=== PATIENT | male | born 1970 | race Caucasian/White ===

== ENCOUNTER → 2021-08-24 15:21 | Outpatient (CLI) | payer BC, SELFPAY ==
--- NOTE | ~2021-08-24 | XR_ITS ---
XR knee RT 2V DATE: 08/24/2021 15:57 INDICATION: Right knee pain TECHNIQUE: AP and lateral views COMPARISON: None FINDINGS: There is enthesopathy of the patella at the quadriceps and patellar tendon insertion sites. There is an ununited anterior tibial tuberosity. There is moderately prominent periarticular spurring at the patellofemoral joint. There is moderate l oss of joint space at the medial compartment. There is mild periarticular spurring at the lateral com partment. No fracture, dislocation, periosteal reaction or bone destruction or joint effusion is evident. No ch ondrocalcinosis or radiopaque interarticular loose body is identified. IMPRESSION: Tricompartment osteoarthritis Patellar enthesopathy Reviewed, dictated and finalized at location A. DRIVER
--- NOTE | ~2021-08-24 | XR_ITS ---
XR knee LT 2V DATE: 08/24/2021 15:57 INDICATION: Left knee pain TECHNIQUE: AP and lateral views COMPARISON: None FINDINGS: There are ununited ossification centers at the anterior tibial tuberosity. There is superior pole and minimal lower pole patellar enthesopathy at the quadriceps and patellar te ndon insertion sites, respectively. There is some calcification along the distal patellar tendon near the anterior tibial tuberosity insertion. There is prominent periarticular spurring at the patella and to a lesser extent lateral compartments. No fracture or dislocation or joint effusion. No periosteal reaction or bone destruction. No chondroc alcinosis or radiopaque intra-articular loose body is noted. IMPRESSION: Osteoarthritis, most pronounced at the patellofemoral joint Distal patellar tendon calcification Reviewed, dictated and finalized at location A. CHISE DEVELOPMENT MANAGER
== END ==
PROVIDERS: PCP Family Medicine; Visit Provider Family Medicine
DX: M25.561 Pain in right knee (principal); M25.562 Pain in left knee; M17.0 Bilateral primary osteoarthritis of knee; M76.51 Patellar tendinitis, right knee
CPT/HCPCS: 73560

== ENCOUNTER 2022-11-29 00:58 | Day surgery (SDC) | payer BC, SELFPAY ==
[2022-11-09 11:37] VITALS: BMI 35.4
[2022-11-29 08:48] VITALS: BP 143/81; PULSE 92; RESP 18; TEMP 36.5; O2SAT 98; BMI 33.7
--- NOTE | 2022-11-29 08:48 | P.PNAN_ITS ---
Anes - Initial Pre Proc Eval Procedure: Operation Date: 11/29/22 10:00 Proposed Procedures p Screening Colonoscopy - Karsten De La Cruz MD Date/Time: 11/29/22 08:48 Surgeon: Karsten De La Cruz MD Pre Op Diagnosis: ivy screening; screening for neoplasm of rectum Patient Data Age: 52 Gender: M Height: 1.91 m Weight: 128.8 kg Allergies Allergy/AdvReac Type Severity Reaction Status Date / Time No Known Allergies Allergy Mild Verified 11/29/22 08:47 Home Medications Medication Instructions Recorded Confirmed Type atorvastatin 10 mg tablet 10 mg PO DAILY #90 tabs 09/23/22 11/29/22 Rx lisinopril 30 mg tablet See Rx Instructions .Route 09/23/22 11/29/22 Rx .COMPLEX #90 tabs metformin 500 mg tablet,extended 2,000 mg PO DAILY #360 tabs 11/09/22 11/29/22 Rx release 24hr Patient hx anesthesia problems: none Family hx anesthesia problems: none Results Review: All pre-operative results and documents have been reviewed as part of the pre- operative evaluation. [facility] Past Medical History Medical History (Updated 11/29/22 @ 08:50 by Guillermo Wren MD) Anxiety Essential (primary) hypertension Mixed hyperlipidemia Obesity TO on CPAP Osteoarthritis of knees, bilateral Smoker Type 2 diabetes mellitus without complication, without long-term current use of insulin Social History Social History Smoking packs per day: 1 Smoking cigarettes per day: 20.0 Years smoked: 25 Smoking pack-years: 25.00 Smoking status: Current every day smoker Tobacco type: cigarettes Second hand tobacco smoke exposure: No Alcohol intake: current Drinks per week: 18 Substance use: former Substance use type: does not use Living arrangements: alone Occupation/Education: occupation Gender identity (if verbalized by the patient): Male Spiritual care concerns: No Anes - Eval Final PreProcedure Day of Procedure 11/29/22 08:48 Patient weight: obese Heart: regular rate and rhythm Lungs: clear to auscultation and normal air movement Airway: Mallampati scale class II Neurological: alert and oriented Last oral intake: >/= 8 hours ASA classification: III Emergent: no Anesthetic plan: proceed Anesthesia type and monitoring: general GIVS Results Review: All pre-operative results and documents have been reviewed as part of the pre- operative evaluation. Informed Consent: The patient's anesthetic plan and its attendant risks and benefits were discussed with the patient/family/POA. Questions were solicited and answers provided to the satisfaction of the patient/family/POA.
[2022-11-29] MEDS: LACTATED RINGERS 1,000 ML 150 ML IV CONT (08:59)
[2022-11-29 09:01] LABS: Glucose Point of Care 182 mg/dl (65-105)
--- NOTE | 2022-11-29 09:21 | P.HP_ITS ---
History of Present Illness History of Present Illness Consent: Risks, benefits, and alternatives have been discussed and questions answered. Patient agrees to proceed with procedure. Chief complaint: ivy screening Narrative: Sam Rodriguez is a 52 year old male Presents for screening colonoscopy. patient's current weight appetite and bowel movements are normal. Patient denies abdominal pain. He has had no bleeding. Family history is significant that his father has had colon polyps. Patient presents today for neoplasia screening. Review of Systems Review of Systems: Review of systems noncontributory. [facility] Past Medical History Medical History (Updated 11/29/22 @ 09:22 by Karsten De La Cruz MD) Anxiety Essential (primary) hypertension Mixed hyperlipidemia Obesity TO on CPAP Osteoarthritis of knees, bilateral Smoker Type 2 diabetes mellitus without complication, without long-term current use of insulin Social History Social History Smoking packs per day: 1 Smoking cigarettes per day: 20.0 Years smoked: 25 Smoking pack-years: 25.00 Smoking status: Current every day smoker Tobacco type: cigarettes Second hand tobacco smoke exposure: No Alcohol intake: current Drinks per week: 18 Substance use: former Substance use type: does not use Living arrangements: alone Occupation/Education: occupation Gender identity (if verbalized by the patient): Male Spiritual care concerns: No Meds Home Medications and Allergies Home Medications Medication Instructions Recorded Confirmed Type atorvastatin 10 mg tablet 10 mg PO DAILY #90 tabs 09/23/22 11/29/22 Rx lisinopril 30 mg tablet See Rx Instructions .Route 09/23/22 11/29/22 Rx .COMPLEX #90 tabs metformin 500 mg tablet,extended 2,000 mg PO DAILY #360 tabs 11/09/22 11/29/22 Rx release 24hr Allergies Allergy/AdvReac Type Severity Reaction Status Date / Time No Known Allergies Allergy Mild Verified 11/29/22 08:47 Vital Signs Vital Signs - 24 hr 11/29/22 08:48 Temperature 97.7 F Pulse Rate 92 Respiratory Rate 18 Blood Pressure 143/81 H Pulse Oximetry 98 Oxygen Delivery Room Air Exam Narrative: Physical exam reveals patient to be alert. Vital signs stable. HEENT exam is unremarkable. Patient is anicteric. Lungs are clear to auscultation and percussion. Heart is without murmur or extra sounds. Abdomen bowel sounds are present soft nontender with no hepatosplenomegaly. Digital external rectal exam is normal. Assessment and Plan Assessment and plan (1) Family history of colonic polyps: Code(s): Z83.71 - Family history of colonic polyps Status: Acute Assessment and Plan: Patient's father has had colon polyps. Patient presents today for neoplasia screening colonoscopy. Further recommendations may be given after endoscopy.
[2022-11-29] MEDS: SIMETHICONE ORAL SUSPENSION 20 MG/0.3 ML 30 ML BOTTLE 0.6 ML IRRIGATION (10:13)
[2022-11-29 10:23] VITALS: BP 113/68; PULSE 85; RESP 18; O2SAT 96
[2022-11-29 10:33] VITALS: BP 119/81; PULSE 80; RESP 17; O2SAT 97
[2022-11-29 10:43] VITALS: BP 119/81; PULSE 77; RESP 18; O2SAT 99
== END 2022-11-29 10:46 | disposition home or self-care (01) ==
PROVIDERS: PCP Family Medicine; Visit Provider Internal Medicine Gastroenterology
PROC: 0DJD8ZZ Inspection of Lower Intestinal Tract, Via Natural or Artificial Opening Endoscopic (ICD-10-PCS; CPT 45378; principal; 2022-11-29 10:00)
DX: Z12.11 Encounter for screening for malignant neoplasm of colon (principal); D12.8 Benign neoplasm of rectum; K64.8 Other hemorrhoids; Z83.71 Family history of colonic polyps; I10 Essential (primary) hypertension; E78.2 Mixed hyperlipidemia; G47.33 Obstructive sleep apnea (adult) (pediatric); E11.9 Type 2 diabetes mellitus without complications; Z79.84 Long term (current) use of oral hypoglycemic drugs; F17.210 Nicotine dependence, cigarettes, uncomplicated; E66.9 Obesity, unspecified; Z68.33 Body mass index [BMI] 33.0-33.9, adult
CPT/HCPCS: 45385; 82948; 88305; J2704; J7120

== ENCOUNTER → 2023-05-10 15:21 | Outpatient (CLI) | payer BC, SELFPAY ==
--- NOTE | ~2023-05-10 | XR_ITS ---
EXAM: XR hip LT min 2V DATE: 05/10/2023 15:49 HISTORY: M25.552 - Pain in left hip . COMPARISON: None available. FINDINGS: Normal mineralization. No fracture or dislocation. No lytic or blastic lesion. Mild degene rative change in the lower lumbar spine and bilateral SI joints. Pelvic and hip enthesopathy. Mild zaira int space narrowing and subchondral sclerosis in the left hip. Ossification of the labral basis. No e rosion or periosteal change. Soft tissues within normal limits. IMPRESSION: Mild left hip osteoarthritis. Reviewed, dictated and finalized at location K.
== END ==
PROVIDERS: PCP Family Medicine; Visit Provider Family Medicine
DX: M16.12 Unilateral primary osteoarthritis, left hip (principal)
CPT/HCPCS: 73502

== ENCOUNTER 2024-11-06 17:23 | Outpatient (CLI) | payer BC, SELFPAY ==
--- NOTE | ~2024-11-06 | XR_ITS ---
HISTORY: S61.019A - Laceration without foreign body of unspecified... COMPARISON: None TECHNIQUE: 2 views of the left first digit FINDINGS: Acute displaced fracture of the tuft of the left first digit were performed. Joint spaces are preserved and alignment is maintained. Soft tissue defect is present in the site of acute fracture. Remaining solid tissues are otherwise unremarkable without radiopaque foreign body or significant elba cification. Age-appropriate mineralization. IMPRESSION: Acute displaced fracture of the tuft of the left first digit, as detailed above. Reviewed, dictated and finalized at location A. IMPRESSION: Acute displaced fracture of the tuft of the left first digit, as d etailed above.
--- OUTSIDE RECORDS SUMMARY | 2024-11-06 17:51 | XMS_ITS | Encounter Summary ---
Author Organization [facility] [place] [address] [place] [address] Care Team Providers Care Consumer Lending Manager Name Role Phone Unavailable Primary Care Provider Unavailabl e Prior Encounters Date Type Department Care Team Description 08/05/2019 Converted 13x Documents [facility] [address] [place] [address] <No scans attached> Plan of Treatment Not on file Visit Diagnoses Not on file
--- OUTSIDE RECORDS SUMMARY | 2024-11-06 17:51 | XMS_ITS | Clinical Summary ---
Author Organization [facility] Address [address] [place] [address] Care Team Providers Care Explosive Expert Name Role Phone Abe Buck MD Primary Care Provider [phone] Allergies No known active allergies Medications prochlorperazin e (COMPAZINE) 10 MG tablet Take 1 tablet (10 mg total) by mouth every 6 (six) hours as needed. 20 tablet 2 7 Active Additional Information Patient not taking.Reported on 07/08/2024 atorvastatin 10 MG tablet Take 1 tablet (10 mg total) by mouth daily. 1 Active metFORMIN ER (GLUCOPHAGE-XR) 500 MG 24 hr tablet Take 4 tablets (2,000 mg total) by mouth daily. 3 Active lisinopril (PRINIVIL) 40 MG tablet Take 1 tablet (40 mg total) by mouth daily. 4 Active escitalopram (LEXAPRO) 20 MG tablet Take 1 tablet (20 mg total) by mouth daily. 4 Active OZEMPIC, 0.25 OR 0.5 MG/DOSE, 2 MG/3ML injection (PEN) ADMINISTER 0.5 MG UNDER THE SKIN WEEKLY FOR 4 WEEKS 4 Active Lancets (ONETOUCH DELICA PLUS [id number]) Misc daily. check blood sugar 4 Active ONETOUCH VERIO test strip daily. Test 4 Active Blood Glucose Monitoring Suppl (ONETOUCH VERIO REFLECT) w/Device Kit daily. check blood sugar 4 Active Active Problems Problem Noted Date Diagnosed Date Pain in both knees, unspecified chronicity 05/18 Localized osteoarthritis of left knee 05/18/2023 Localized osteoarthritis of right knee Shoulder strain, left, initial encounter 021 Rotator cuff tendonitis, right 09/08/2020 Family History Medical History Relation Comments Heart Disease Paternal Grandfather Cancer Paternal Grandmother None Neg Hx Relation Status Comments Father Alive Mother Alive Paternal Grandfather had bypass Paternal Grandmother Social History Tobacco Use Types Packs/Day Years Used Date Smoking Tobacco: Every Day Cigarettes 1 15 Smokeless Tobacco: Current Chew Tobacco Cessation:Ready to Q uit: Yes; Counseling Given: Yes Comments:chew about once a month ( Patient to quit smoking for upcoming apt with GONZALEZ ) Alcohol Use Standard Drinks/Week Comments Yes 20 (1 standard drink = 0.6 oz pu re alcohol) 6 pack a week PHQ-2 Answer Date Recorded Patient Health Questionnaire-2 Score 0 01/05/2024 Sex and Gender Information Value Date Recorded Sex Assigned at Not on file Legal Sex Male 3:23 PM HAIR TINTER Gender Identity Not on file Sexual Orientation Not on file Last Filed Vital Signs Vital Sign Reading Time Taken Comments Blood Pressure 133/74 07/08/2024 12:47 PM HAIR TINTER Pulse 95 07/08/2024 12:47 PM HAIR TINTER Temperature 36.2 C (97.2 F) 01/05/2024 11:00 AM CDT Respiratory Rate 20 06/12/2017 5:25 PM HAIR TINTER Oxygen Saturation 94% 06/12/2017 5:25 PM HAIR TINTER Inhaled Oxygen Concentration - - Weight 131.5 kg (290 lb) 07/08/2024 12:47 PM HAIR TINTER Height 193 cm (6' 4 ) 01/05/2024 11:00 AM CDT pt states Body Mass Index 35.3 01/05/2024 11:00 AM CDT Plan of Treatment Upcoming Encounters Date Type Department Care Team (Late st Contact Info) Description 01/10/2025 11:20 AM CDT Office Visit [facility] [place] [address] [place] [address] Luis Moreno MD [address] [place] [address] Health Maintenance Due Date Last Done Comments Colorectal Cancer Screening Colonoscopy (10 Years) 1972 Annual Physical 1975 Hepatitis C 1990 DTaP, Tdap and Td Vaccines ( 1 - Tdap) 1991 Hepatitis B Vaccines (1 of 3 - 19+ 3-dose series) 1991 Pneumococcal Vaccine: 50+ Ye ars (1 of 2 - PCV) 1991 Zoster Vaccines (1 of 2) 2022 COVID-19 Vaccine (1 - 2023-2 5 season) 2024 PHQ-2 (Physician [place]) 07/17/2024 01/05/2024 Meningococcal B Vaccine Aged Out No l onger eligible based on patient's age to complete this topic Meningococcal Vaccine Aged Out No viviane michael eligible based on patient's age to complete this topic RSV Immunizations Under 20 Months Aged Out No longer eligible based on patient's age to complete this topic Medical Devices Implanted Type Area Network Support Analyst Device Identifier Shelf Expiration Date Model / Serial / Lot Biceps Button Implanted:Qty: 1 on 06/12/2017 by Edgard Mensah MD at [facility] Left: Shoulder [employer] 12/14/2021 / / [id number] Suture [place], Bio-Swivelock Implanted:Qty: 4 on 06/12/2017 by Edgard Mensah MD at [facility] Left: Shoulder [employer] 11/10/2018 [id number] / / [id number] Insurance [facility] [[email or web address]] Care Teams Explosive Expert Relationship Specialty Start Date End Date Abe Buck MD [address] [place] [address] PCP - General FAMILY PRACTICE 05/31/17
--- OUTSIDE RECORDS SUMMARY | 2024-11-06 17:51 | XMS_ITS | Encounter Summary ---
Author Organization [facility] Address [address] [place] [address] Care Team Providers Care Door Clamp Operator Name Role Phone Unavailable Primary Care Provider Unavailabl e Encounter Details Date Type Department Care Team (Late st Contact Info) Description 03/15/2022 Lab Requisition [facility] Derm[facility] Lab [address] [place] [id number] Sang Angela MD [address] [facility] [address] [place] [address] Social History Tobacco Use Types Packs/Day Years Used Date Smoking Tobacco: Never Assessed Sex and Gender Information Value Date Recorded Sex Assigned at Not on file Legal Sex Male 4:55 PM CDT Gender Identity Not on file Sexual Orientation Not on file documented as of this encounter Plan of Treatment Not on file documented as of this encounter Procedures Procedure Name Priority Date/Time Associated Diagnosis Comments DERMATOPATHOLOGY Routine 03/14/2022 12:0 0 AM CDT documented in this encounter Results * DERMATOPATHOLOGY (03/14/2022 12:00 AM CDT) Case Report Dermatopathology Report Case: [id number] Authorizing Provider: Sang Angela MD Collected: 03/14/2022 12:00 AM Ordering Location: [facility] Received: 03/15/2022 05:14 PM Pathologist: Sommer Ramos MD Specimen: Skin, nape 4:18 PM CDT DERMATOPATHOLOGY LABORATORY Final Diagnosis Specimen A. 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 BCCA vs. SCCA. Path# [id number] 2 4:18 PM CDT DERMATOPATHOLOGY LABORATORY Gross Description Specimen A: Received is one formalin filled container labeled with the patient's name and designated nape. The specimen consists of a shave biopsy measuring [id number]. Jar 0. 2 4:18 PM CDT DERMATOPATHOLOGY LABORATORY Microscopic Description Specimen A. SKIN, nape: The epidermis shows parakeratosis, full thickness disorderly maturation of keratinocytes, mitoses at different levels, and dyskeratotic cells. The lesion extends to the base of the biopsy. COMMENT: An invasive squamous cell carcinoma cannot be ruled out. 2 4:18 PM CDT DERMATOPATHOLOGY LABORATORY Disclaimer An external and internal positive and negative controls are appropriate for the histochemical, immunohistochemical and immunofluorescence stain(s) in this case (if any), except where stated explicitly. The performance characteristics of the stain(s) cited in this report were developed and its performance characteristic determined by the Dermatopathology Laboratory at [facility], directed by Dr. Xochilt Ramos. These tests need not be, and therefore are not, approved by the [place] Food and Drug Administration. The tests are used for clinical purposes. Billing Codes Specimen Charges Stain Charges 54592 1 2 4:18 PM CDT DERMATOPATHOLOGY LABORATORY Embedded Images 2 4:18 PM CDT DERMATOPATHOLOGY LABORATORY Pathology/Cytolog y TISSUE SPECIMEN FROM SKIN / Unknown 03/14/2022 03/15/2022 5:14 PM CDT us Sang Angela MD LAB - PATHOLOGY/CYTOLOGY ORDER JOEL Final Result DERMATOPATHOLOGY LABORATORY [facility] - Department of Dermatology [address] [place] [address], [facility] [phone] documented in this encounter Visit Diagnoses Not on filedocumented in this encounter
--- OUTSIDE RECORDS SUMMARY | 2024-11-06 17:51 | XMS_ITS | Encounter Summary ---
Author Organization [facility] Address [address] [place] [address] Care Team Providers Care Novelty Balloon Assembler And Packer Name Role Phone Unavailable Primary Care Provider Unavailabl e Encounter Details Date Type Department Care Team (Late st Contact Info) Description 05/16/2022 Lab Requisition [facility] DermPath Lab [address] [place] [id number] Sang Angela MD [address] [place] [address] Social History Tobacco Use Types Packs/Day [...] Priority Date/Time Associated Diagnosis Comments DERMATOPATHOLOGY Routine 05/12/2022 12:0 0 AM CDT documented in this encounter Results * DERMATOPATHOLOGY (05/12/2022 12:00 AM CDT) Case Report Dermatopathology Report Case: [id number] Authorizing Provider: Sang Angela MD Collected: 05/12/2022 12:00 AM Ordering Location: [facility] Derm[facility] Lab Received: 05/16/2022 06:22 AM Pathologist: Sommer Ramos MD Specimens: A) - Skin, right occiput B) - Skin, right upper nape 1:01 PM CDT DERMATOPATHOLOGY LABORATORY Final Diagnosis Specimen A. 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 SKIN, right upper nape: BENIGN VERRUCOUS KERATOSIS, INFLAMED (L82.1) HEALING SKIN CHANGES (L90.5) 1:01 PM [facility] DERMATOPATHOLOGY LABORATORY Clinical History A: SCCA vs. Prurigo. Path# [id number] B: SCCA vs. Prurigo. Path# [id number] 2 1:01 PM T DERMATOPATHOLOGY LABORATORY Gross Description Specimen A: Received is one formalin filled container labeled with the patient's name and designated right occiput. The specimen consists of a shave biopsy measuring [id number]. Jar 0. Specimen B: Received is one formalin filled container labeled with the patient's name and designated right upper nape. The specimen consists of a shave biopsy measuring [id number]. Jar 0. 1:01 PM [facility] DERMATOPATHOLOGY LABORATORY Microscopic Description Specimen A. SKIN, right occiput: There is a dome-shaped portion of skin with psoriasiform epidermal hyperplasia, compact hyperkeratosis, and fibrosis of the papillary dermis associated with a superficial perivascular lymphohistiocytic infiltrate. A focal erosion is present. Specimen B. SKIN, right upper nape: Sections show hyperkeratosis, papillomatosis, hypergranulosis, and acanthosis. Inflammatory cells are present within the dermis. These histological findings can be seen in a verruca vulgaris or a seborrheic keratosis. There is epidermal hyperplasia beneath which there are vascular proliferation, fibroblasts, and an edematous stroma. 2 1:01 PM [facility] DERMATOPATHOLOGY LABORATORY Disclaimer An external and internal positive and negative controls are appropriate for the histochemical, immunohistochemical and immunofluorescence stain(s) in this case (if any), except where stated explicitly. The performance characteristics of the stain(s) cited in this report were developed and its performance characteristic determined by the Dermatopathology Laboratory at [facility], directed by Dr. Xochilt Ramos. These tests need not be, and therefore are not, approved by the [place] Food and Drug Administration. The tests are used for clinical purposes. Billing Codes Specimen Charges Stain Charges 81189 00576 1 1 2 1:01 PM T DERMATOPATHOLOGY LABORATORY Embedded Images 11/01/202 2 1:01 PM CDT DERMATOPATHOLOGY LABORATORY Pathology/Cytology TISSUE SPECIMEN FROM SKIN / Unknown 05/12/2022 05/16/2022 6:22 AM CDT Miscellaneous samples (specimen) TISSUE SPECIMEN FROM SKIN / Unknown 05/12/2022 05/16/2022 6:22 AM CDT us Sang Angela MD LAB - PATHOLOGY/CYTOLOGY ORDER JOEL Final Result DERMATOPATHOLOGY LABORATORY [facility] - Department of Dermatology [facility] Specialized Medicine [address] [place] [address], [address] [phone] documented in this encounter Visit Diagnoses Not on filedocumented in this encounter
--- OUTSIDE RECORDS SUMMARY | 2024-11-06 17:51 | XMS_ITS | Clinical Summary ---
Author Organization [facility] [place] [address] [place] [address] Care Team Providers Care Crane Oiler Name Role Phone Unavailable Primary Care Provider Unavailabl e Social History Tobacco Use Types Packs/Day Years Used Date Smoking Tobacco: Never Assessed Comments Unknown Sex and Gender Information Value Date Recorded Sex Assigned at Not on file Legal Sex Unknown 03/02/2020 9:06 PM PDT Gender Identity Not on file Sexual Orientation Not on file Plan of Treatment Not on file
--- OUTSIDE RECORDS SUMMARY | 2024-11-06 17:51 | XMS_ITS | Clinical Summary ---
Author Organization [facility] Address [address] [place] [address] Care Team Providers Care Sql Developer Name Role Phone Unavailable Primary Care Provider Unavailabl e Source Comments [facility],non-owned Affiliates and Associated Physician Practices is amultiple site organization consisting of ambulatory clinics and hospital sitesin [place], [place], [place] and [place]. This disclosure is being madepursuant to the Care Everywhere program and may not contain all information available regarding this patient. Last updated 18.[facility] [address] Social History Tobacco Use Types Packs/Day Years Used Date Smoking Tobacco: Never Assessed Sex and Gender Information Value Date Recorded Sex Assigned at Not on file Legal Sex Male 4:55 PM CDT Gender Identity Not on file Sexual Orientation Not on file Plan of Treatment Health Maintenance Due Date Last Done Comments COLOGUARD (AGES 45-75) - COL ON CA SCREENING 1972 COLON MONITORING 1972 COLONOSCOPY - COLON CA SCREENING 1972 CT COLONOGRAPHY - COLON CA SCREENING 1972 Colorectal Cancer Screening 1972 FIT - COLON CA SCREENING 1972 FLEX SIG - COLON CA SCREENING 1972 LIPID TESTING 1972 HIV SCREENING 1987 HEPATITIS C SCREENING 05/02/1990 DTAP/TDAP/TD VACCINES (1 - Tdap) 1991 HEPATITIS B VACCINE (1 of 3 - 19+ 3-dose series) 1991 PNEUMOCOCCAL VACCINE 50+ (1 of 1 - PCV) 2022 ZOSTER VACCINE (1 of 2) 2022 COVID-19 VACCINE (1 - 2023-2 5 season) 2024 DEPRESSION SCREENING 07/17/2024 INFLUENZA VACCINE (Season Ended) 2025 HIB VACCINE Aged Out No longer eligi ble based on patient's age to complete this topic HPV VACCINE Aged Out No longer eligi ble based on patient's age to complete this topic MENINGOCOCCAL (Group B) VACC INE SHARED DECISION-MAKING Aged Out No longer eligibl e based on patient's age to complete this topic MENINGOCOCCAL GROUPS A/C/Y/W VACCINE Aged Out No longer eligible b ased on patient's age to complete this topic PNEUMOCOCCAL VACCINE Aged Out No long er eligible based on patient's age to complete this topic Insurance [employer]
== END 2024-11-06 17:24 | disposition home or self-care (01) ==
PROVIDERS: PCP Family Medicine; Visit Provider Physician Assistant
DX: S62.522A Displaced fracture of distal phalanx of left thumb, initial encounter for closed fracture (principal); X58.XXXA Exposure to other specified factors, initial encounter
CPT/HCPCS: 73140